=== PATIENT | male | born 1950 | race Caucasian/White ===

== ENCOUNTER → 2019-02-27 | Outpatient (CLI) | payer OTHER ==
--- NOTE | 2019-02-27 16:01 | RADIOLOGY REPORT (SQ) ---
EXAM DESCRIPTION: CT LUNG CANCER SCREENING COMPLETED DATE/TIME: 02/27/2019 12:54 pm REASON FOR STUDY: HISTORY OF SMOKING Has the patient had a Chest CT scan within the past year? N Was the patient offered tobacco cessation counseling? N Was the patient engaged in shared decision making for this test? Y Does the patient have signs or symptoms of Lung Cancer? N Is the patient a smoker? N How many pack years? 30 How many years since quitting smoking? 13 Patients age: 68 COMPARISON: None. TECHNIQUE: Low Dose CT scan performed of the chest without intravenous contrast for purposes of scre ening for lung cancer. Images reviewed with lung, soft tissue and bone windows. Reconstructed coron al and sagittal MPR images reviewed. All images stored on PACS. All CT scanners at this facility use dose modulation, iterative reconstruction, and/or weight based d osing when appropriate to reduce radiation dose to as low as reasonably achievable (ALARA). [facility]: Dose Right [facility]: CareDose [facility]: Dose Right [facility]: Teradose 4D [facility]: [employer] RADIATION DOSE: CT Rad equipment meets quality standard of care and radiation dose reduction techniq ues were employed. CTDIvol: 2.1 mGy. DLP: 85 mGy-cm. mGy. . LIMITATIONS: No technical limitations. FINDINGS: LUNG NODULES: Description: Small subcentimeter solid pulmonary nodules in the lungs, one of the largest is noted in the left lingula, axial image 152, series 3 measures 4-5.0 mm. REMAINING LUNGS AND PLEURA: Mild emphysematous changes in the lungs with left paramediastinal bulla. Biapical slight to mild nodular fibrosis/sclerosis. Scattered areas of scarring in the lungs. No p neumothorax or pleural effusion. The central airways are clear. HILAR AND MEDIASTINAL STRUCTURES: Mildly prominent mediastinal lymph nodes with some of the largest measuring 2.0 cm in diameter. HEART AND VASCULAR STRUCTURES: Atherosclerotic changes involving the thoracic aorta. No aortic aneu rysm. No pericardial effusion. No cardiac devices. CORONARY ARTERY CALCIFICATIONS: Heavily calcified moderate to moderate severe calcifications. UPPER ABDOMEN, THYROID, BONES, OTHER SOFT TISSUES: Bilateral gynecomastia. IMPRESSION: 1. BENIGN FINDINGS IN THE LUNGS. 2. Mildly prominent mediastinal lymph nodes. Follow-up noncontrast CT chest examination is suggeste d in three months. 3. Heavily calcified moderate to moderate severe coronary artery calcifications. LUNGRADS: LUNGRADS: 2 BENIGN APPEARANCE OR BEHAVIOR. NODULES WITH A VERY LOW LIKELIHOOD OF BECOMING A CLINICALLY ACTIVE CANCER DUE TO SIZE OR LACK OF GROWTH. MODIFIER: (S) RECOMMENDATION: Continue annual screening with LDCT in 12 months. COMMENT: CRITERIA: Solid nodule(s): < 6 mm; new < 4 mm. Part solid nodule(s): < 6 mm total diameter on baseline screening. Non solid nodule(s) (GGN): < 20 mm OR ? 20 and unchanged or slowly growing. Category 3 or 4 modules unchanged for ? 3 months. TECHNICAL DOCUMENTATION: JOB ID: [id number] Quality ID # [id number]: Final reports with documentation of one or more dose reduction techniques (e.g., Au tomated exposure control, adjustment of the mA and/or kV according to patient size, use of iterative reconstruction technique) 2010 [facility] Reading location - IP/workstation name: [email or web address]
== END ==
LOC: RAD 12:35
PROVIDERS: ATTEND Physician Assistant
DX: F17.210 Nicotine dependence, cigarettes, uncomplicated (principal)
CPT/HCPCS: G0297